=== PATIENT | female | born 1940 | race Caucasian/White ===

== ENCOUNTER 2018-01-16 19:01 | Emergency (ER) | payer MEDICAID ==
[~2018-01-16] VITALS: Ht 162.6 cm; Wt 60.4 kg
[2018-01-16 19:19] VITALS: Ht 162.6 cm; Wt 60.4 kg
[2018-01-16 22:02] VITALS: BP 149/82
== END 2018-01-16 22:02 | disposition home or self-care (01) ==
LOC: ED 19:01
DX: S22.32XA Fracture of one rib, left side, initial encounter for closed fracture (principal); I10 Essential (primary) hypertension; E11.9 Type 2 diabetes mellitus without complications; Z88.0 Allergy status to penicillin; W22.8XXA Striking against or struck by other objects, initial encounter; Y93.89 Activity, other specified; Y92.89 Other specified places as the place of occurrence of the external cause; Y99.8 Other external cause status
CPT/HCPCS: J1885

== ENCOUNTER 2018-05-21 16:12 | Inpatient (IN) | payer MEDICAID | END 2018-05-22 13:49 | disposition home or self-care (01) | LOC: ED 16:12 → MU 19:38 → ED 16:12 → MU 05-22 13:49 → ED 16:12 → MU 19:38 ==